=== PATIENT | female | born 1955 | race Caucasian/White ===

== ENCOUNTER 2017-02-27 14:21 | Emergency (ER) | payer OTHER ==
[~2017-02-27] VITALS: Ht 144.8 cm; Wt 63.0 kg
[~2017-02-27 14:21] MED LIST: ASPI325EC PO; ATOR10 PO; Bactrim Ds Tab1 EACH PO; CEPH500 PO; IBUP800 PO; LETR2.5 PO; LISI20 PO; Macrodantin50 MG; Norco 5-325 Ta1 EACH PO; Percocet 5-3251 EACH PO; TOPI100 PO; TOPIRAMATE ER50 MG; TRIM100 PO
== END 2017-02-27 15:41 | disposition home or self-care (01) ==
LOC: ER 14:21
DX: S80.11XA Contusion of right lower leg, initial encounter (principal); Z96.651 Presence of right artificial knee joint; I10 Essential (primary) hypertension; Z48.89 Encounter for other specified surgical aftercare; X58.XXXA Exposure to other specified factors, initial encounter; Z79.899 Other long term (current) drug therapy; Z79.82 Long term (current) use of aspirin
CPT/HCPCS: 99282

== ENCOUNTER 2017-08-21 10:23 | Emergency (ER) | payer OTHER ==
[~2017-08-21] VITALS: Ht 144.8 cm; Wt 53.5 kg
[2017-08-21] MEDS ORDERED: TRAM50 PO (11:38)
== END 2017-08-21 11:49 | disposition home or self-care (01) ==
LOC: ER 10:23
DX: M24.9 Joint derangement, unspecified (principal); I10 Essential (primary) hypertension; Z79.899 Other long term (current) drug therapy; W01.0XXA Fall on same level from slipping, tripping and stumbling without subsequent striking against object, initial encounter
CPT/HCPCS: 73030; 99283

== ENCOUNTER 2017-09-13 09:13 | Day surgery (SDC) | payer OTHER ==
[~2017-09-13] VITALS: Ht 144.8 cm; Wt 51.9 kg
[~2017-09-13 09:13] MED LIST changes: +TRAM50 PO
== END 2017-09-13 12:45 | disposition home or self-care (01) ==
LOC: ORSCSDS 09:13
PROVIDERS: Orthopaedic Surgery
PROC: 0JNJ0ZZ Release Right Hand Subcutaneous Tissue and Fascia, Open Approach (ICD-10-PCS; principal; 2017-09-13 10:35)
PROC: 0LN70ZZ Release Right Hand Tendon, Open Approach (ICD-10-PCS; principal; 2017-09-13 10:35)
DX: M72.0 Palmar fascial fibromatosis [Dupuytren] (principal); I10 Essential (primary) hypertension; Z79.899 Other long term (current) drug therapy
CPT/HCPCS: 88304; J0690; J1100; J2250; J2405; J2765; J3010; J7120

== ENCOUNTER 2018-09-08 19:02 | Emergency (ER) | payer OTHER ==
[~2018-09-08] VITALS: Ht 144.8 cm; Wt 44.9 kg
== END 2018-09-08 20:05 | disposition home or self-care (01) ==
LOC: ER 19:02
DX: S61.213A Laceration without foreign body of left middle finger without damage to nail, initial encounter (principal); I10 Essential (primary) hypertension; F17.200 Nicotine dependence, unspecified, uncomplicated; Z23 Encounter for immunization; W26.0XXA Contact with knife, initial encounter
CPT/HCPCS: 12001; 90471; 90714; 99282-25

== ENCOUNTER → 2019-03-09 | Outpatient (CLI) | payer OTHER ==
[2019-03-13 06:57] LABS: Stool Occult Bld Immuno 1 Negative (NEGATIVE)
== END | disposition home or self-care (01) ==
LOC: LAB SHORT 10:00 → LAB 10:00
PROVIDERS: Family Medicine
DX: Z12.11 Encounter for screening for malignant neoplasm of colon (principal)
CPT/HCPCS: G0328

== ENCOUNTER → 2020-02-14 | Outpatient (CLI) | payer MEDICARE ==
[2020-02-14 08:47] LABS: Source, Urine Clean Catch
[2020-02-14 14:44] LABS: Appearance, Urine Clear (Clear); Bilirubin, Urine Neg (Neg); Blood, Urine Neg (Neg); Color, Urine Yellow (P-Yellow); Glucose Qualitative, Urine Neg (Neg); Ketones, Urine Neg (Neg); Leukocyte Esterase, Urine 2+ (Neg); Nitrite, Urine Neg (Neg); Protein, Urine Neg (Neg); Specific Gravity, Urine 1.015 (1.003-1.022); Urobilinogen, Urine NORM (Normal)
[2020-02-14 14:51] LABS: Bacteria Few /hpf; Red Blood Cells, Urine 0-2 /hpf (0-2); Squamous Epithelial Cells Mod /hpf (Few)
== END | disposition home or self-care (01) ==
LOC: LAB 08:45
PROVIDERS: Family Medicine
DX: R10.9 Unspecified abdominal pain (principal)
CPT/HCPCS: 81001; 87086

== ENCOUNTER 2020-05-31 12:28 | Emergency (ER) | payer MEDICARE ==
[~2020-05-31] VITALS: Ht 144.8 cm; Wt 49.0 kg
[2020-05-31 13:01] LABS: BASOPHILS ABSOLUTE AUTO 0.03 K/mm3 (0.00-0.23); BASOPHILS PERCENT AUTO 1 % (0-2); EOSINOPHILS ABSOLUTE AUTO 0.07 K/mm3 (0.00-0.68); EOSINOPHILS PERCENT AUTO 1 % (0-6); Hematocrit 32.8 % (33.0-51.0); Hemoglobin 10.9 g/dL (11.5-16.0); IMMATURE GRAN ABSOLUTE AUTO 0.01 K/mm3 (0.00-0.10); IMMATURE GRAN PERCENT AUTO 0 % (0-1); LYMPHOCYTES ABSOLUTE AUTO 0.82 K/mm3 (0.84-5.20); LYMPHOCYTES PERCENT AUTO 16 % (21-46); MONOCYTES ABSOLUTE AUTO 0.81 K/mm3 (0.16-1.47); MONOCYTES PERCENT AUTO 15 % (4-13); Mean Corpuscular HGB 30.7 pg (26.0-34.0); Mean Corpuscular HGB Conc 33.2 g/dL (31.5-36.5); Mean Corpuscular Volume 92 fL (80-100); Mean Platelet Volume 8.8 fL (9.1-12.4); NEUTROPHILS ABSOLUTE AUTO 3.56 K/mm3 (1.96-9.15); NEUTROPHILS PERCENT AUTO 67 % (41-73); Platelet Count 317 K/mm3 (150-400); RDW Coefficient Variation 12.2 % (11.7-14.2); Red Blood Cell Count 3.55 M/mm3 (3.80-5.20)
[2020-05-31 13:26] LABS: Albumin, Blood 3.3 g/dL (3.4-5.0); Albumin/Globulin Ratio 1.1 (0.8-1.8); Bilirubin, Total 0.3 mg/dL (0.1-1.0); Bun/Creatinine Ratio 19.4 (12.0-20.0); Calcium, Blood 8.6 mg/dL (8.5-10.1); Creatinine, Blood 1.08 mg/dL (0.40-1.00); Total Protein, Blood 6.3 g/dL (6.4-8.2)
== END 2020-05-31 16:50 | disposition home or self-care (01) ==
LOC: ER 12:28
PROVIDERS: Physician Assistant
DX: R29.810 Facial weakness (principal); I10 Essential (primary) hypertension; Z88.8 Allergy status to other drugs, medicaments and biological substances; Z79.899 Other long term (current) drug therapy
CPT/HCPCS: 36415; 70450; 80053; 85025; 93005; 93010; 99284-25

== ENCOUNTER → 2020-09-21 | Outpatient (CLI) | payer MEDICARE | END | disposition home or self-care (01) | LOC: LAB SHORT 20:18 | DX: M54.5 Low back pain (principal) | CPT/HCPCS: 87086 ==

== ENCOUNTER → 2021-10-27 | Outpatient (CLI) | payer OTHER | END | disposition home or self-care (01) | LOC: LAB 15:18 → LAB SHORT 15:18 | DX: N39.0 Urinary tract infection, site not specified (principal) | CPT/HCPCS: 87077; 87086; 87186 ==

== ENCOUNTER → 2022-01-29 | Outpatient (CLI) | payer OTHER ==
[2022-01-29 13:12] LABS: Source, Urine Clean Catch
[2022-01-29 16:38] LABS: Appearance, Urine Turbid (Clear); Bilirubin, Urine Neg (Neg); Blood, Urine 2+ (Neg); Color, Urine Yellow (P-Yellow); Glucose Qualitative, Urine Neg (Neg); Ketones, Urine Neg (Neg); Leukocyte Esterase, Urine 3+ (Neg); Nitrite, Urine Pos (Neg); Protein, Urine 2+ (Neg); Urobilinogen, Urine NORM (Normal)
[2022-01-29 17:22] LABS: Bacteria Many /hpf; Granular Casts 0-2 /lpf (0); Hyaline Casts 0-2 /lpf (0-2); Red Blood Cells, Urine TNTC /hpf (0-2); Squamous Epithelial Cells Few /hpf (Few); White Blood Cells, Urine TNTC /hpf (0-5)
== END | disposition home or self-care (01) ==
LOC: LAB 11:30 → LAB SHORT 11:30
PROVIDERS: Family Medicine
DX: R30.0 Dysuria (principal)
CPT/HCPCS: 81001; 87077; 87086; 87186

== ENCOUNTER 2022-06-02 09:27 | Emergency (ER) | payer OTHER ==
[~2022-06-02] VITALS: Ht 144.8 cm; Wt 45.4 kg
[2022-06-02] MEDS ORDERED: TRAZ150T57 PO (09:43)
[2022-06-02] MEDS ORDERED: TIZANIDINE HCL213 PO (09:43)
[2022-06-02] MEDS ORDERED: ATOR10 PO (09:44)
[2022-06-02] MEDS ORDERED: Lisinopril2.5 MG (09:44)
[2022-06-02] MEDS ORDERED: TRAM50 PO (12:06)
[2022-06-02] MEDS ORDERED: MOTRIN IB200 MG PO (12:08)
== END 2022-06-02 12:34 | disposition home or self-care (01) ==
LOC: ER 09:27
DX: S82.841A Displaced bimalleolar fracture of right lower leg, initial encounter for closed fracture (principal); S92.251A Displaced fracture of navicular [scaphoid] of right foot, initial encounter for closed fracture; I10 Essential (primary) hypertension; V89.2XXA Person injured in unspecified motor-vehicle accident, traffic, initial encounter; Z79.899 Other long term (current) drug therapy
CPT/HCPCS: 70450; 72125; 73560-RT; 73600; 73610; 73630; 76000

== ENCOUNTER 2022-06-04 09:51 | Day surgery (SDC) | payer OTHER ==
[~2022-06-04] VITALS: Ht 144.8 cm; Wt 46.1 kg
[~2022-06-04 09:51] MED LIST changes: +Lisinopril2.5 MG; +MOTRIN IB200 MG PO; +TIZANIDINE HCL213 PO; +TRAZ150T57 PO
--- NOTE | 2022-06-04 11:20 | NUR ---
History, Chart, Medications and Allergies reviewed before start of procedure. Patient confirms NPO status and agrees with scheduled surgery. Pre-Op teaching done. Pt verbalizes understanding. Patient States Post-Procedure ride home has been arranged. Patient reports completing Chlorhexadine shower X2 prior to admission to hospital. Lungs clear T/O to Auscultation.
[2022-06-04] MEDS ORDERED: TRAZ100 PO (11:57)
--- NOTE | 2022-06-04 12:30 | NUR ---
RX GIVEN TO DAUGHTER IN LAW TO GET FILLED WHILE PT IS IN SURGERY.
--- NOTE | 2022-06-04 16:14 | NUR ---
Discharge instructions reviewed with patient. Patient verbalizes understanding. Copy given to patient to take home. Patient States Post-Procedure ride home has been arranged. Discharged via wheelchair to private car for ride home. PT HAS CAP REFILL OF <2, NO DISCOLORATION OR SWELLING OF EXTREMITY. ALL BELONGINGS RETURNED TO PATIENT.
== END 2022-06-04 22:48 | disposition home or self-care (01) ==
LOC: ORSCMMR 09:51 → ORD 11:30 → ORSCMMR 22:48
DX: S82.841A Displaced bimalleolar fracture of right lower leg, initial encounter for closed fracture (principal); I10 Essential (primary) hypertension; F17.210 Nicotine dependence, cigarettes, uncomplicated; Z79.899 Other long term (current) drug therapy; Z85.3 Personal history of malignant neoplasm of breast
CPT/HCPCS: A9270; C1713; C1769; J0690; J1100; J1885; J2270; J2405; J2704; J2795; J3010; J7120

== ENCOUNTER 2022-06-22 12:07 | Emergency (ER) | payer OTHER ==
[~2022-06-22] VITALS: Ht 144.8 cm; Wt 45.4 kg
[~2022-06-22 12:07] MED LIST changes: +TRAZ100 PO
[2022-06-22 13:31] LABS: BASOPHILS ABSOLUTE AUTO 0.04 K/mm3 (0.00-0.23); BASOPHILS PERCENT AUTO 1 % (0-2); EOSINOPHILS ABSOLUTE AUTO 0.04 K/mm3 (0.00-0.68); EOSINOPHILS PERCENT AUTO 1 % (0-6); Hematocrit 30.8 % (33.0-51.0); Hemoglobin 10.2 g/dL (11.5-16.0); IMMATURE GRAN ABSOLUTE AUTO 0.02 K/mm3 (0.00-0.10); IMMATURE GRAN PERCENT AUTO 0 % (0-1); LYMPHOCYTES ABSOLUTE AUTO 0.88 K/mm3 (0.84-5.20); LYMPHOCYTES PERCENT AUTO 15 % (21-46); MONOCYTES ABSOLUTE AUTO 0.55 K/mm3 (0.16-1.47); MONOCYTES PERCENT AUTO 9 % (4-13); Mean Corpuscular HGB 31.3 pg (26.0-34.0); Mean Corpuscular HGB Conc 33.1 g/dL (31.5-36.5); Mean Corpuscular Volume 95 fL (80-100); Mean Platelet Volume 8.6 fL (9.1-12.4); NEUTROPHILS ABSOLUTE AUTO 4.43 K/mm3 (1.96-9.15); NEUTROPHILS PERCENT AUTO 74 % (41-73); Platelet Count 436 K/mm3 (150-400); RDW Coefficient Variation 13.2 % (11.7-14.2); RDW Standard Deviation 46.1 fL (35.1-46.3); Red Blood Cell Count 3.26 M/mm3 (3.80-5.20); White Blood Cell Count 5.96 K/mm3 (4.00-11.30)
[2022-06-22] MEDS ORDERED: TRIM100 PO (13:37)
[2022-06-22 13:51] LABS: Source, Urine Clean Catch
[2022-06-22 13:57] LABS: Albumin, Blood 3.3 g/dL (3.4-5.0); Albumin/Globulin Ratio 1.1 (0.8-1.8); Bilirubin, Total 0.2 mg/dL (0.1-1.0); Calcium, Blood 8.5 mg/dL (8.5-10.1); Creatinine, Blood 1.32 mg/dL (0.40-1.00); Globulin, Blood 3.1 g/dL (2.2-4.0); Potassium, Blood 4.8 mmol/L (3.5-5.5); Total Protein, Blood 6.4 g/dL (6.4-8.2)
[2022-06-22 14:00] LABS: Bilirubin, Urine Neg (Neg); Blood, Urine Neg (Neg); Glucose Qualitative, Urine Neg (Neg); Ketones, Urine Neg (Neg); Leukocyte Esterase, Urine Neg (Neg); Nitrite, Urine Neg (Neg); Protein, Urine 1+ (Neg); Specific Gravity, Urine 1.015 (1.003-1.022); Urobilinogen, Urine NORM (Normal)
[2022-06-22 14:01] LABS: Appearance, Urine Clear (Clear); Color, Urine Yellow (P-Yellow)
[2022-06-22 14:53] VITALS: BP 93/57
== END 2022-06-22 15:11 | disposition home or self-care (01) ==
LOC: ER 12:07
PROVIDERS: Physician Assistant
DX: R07.89 Other chest pain (principal); R10.9 Unspecified abdominal pain; E27.8 Other specified disorders of adrenal gland; I10 Essential (primary) hypertension; Z79.899 Other long term (current) drug therapy
CPT/HCPCS: 36415; 71046; 74177; 80053; 85025; Q9967

== ENCOUNTER → 2022-06-30 | Outpatient (CLI) | payer OTHER ==
[2022-06-30 10:17] LABS: Source, Urine Clean Catch
[2022-06-30 12:15] LABS: Appearance, Urine Cloudy (Clear); Bilirubin, Urine Neg (Neg); Blood, Urine 2+ (Neg); Color, Urine Yellow (P-Yellow); Glucose Qualitative, Urine Neg (Neg); Ketones, Urine Neg (Neg); Leukocyte Esterase, Urine 3+ (Neg); Nitrite, Urine Pos (Neg); Protein, Urine 3+ (Neg); Specific Gravity, Urine 1.015 (1.003-1.022); Urobilinogen, Urine NORM (Normal); pH, Urine 6.5 (5.0-8.0)
[2022-06-30 13:05] LABS: Bacteria Many /hpf; Mucus Heavy (0-Heavy); Squamous Epithelial Cells Mod /hpf (Few); White Blood Cells, Urine 25-50 /hpf (0-5)
== END | disposition home or self-care (01) ==
LOC: LAB 10:10 → LAB SHORT 10:10
PROVIDERS: Family Medicine
DX: R30.0 Dysuria (principal)
CPT/HCPCS: 81001; 87077; 87086; 87186

== ENCOUNTER → 2022-11-26 | Outpatient (CLI) | payer OTHER ==
[2022-11-26 16:13] LABS: Creatinine Urine 56.4 mg/dL (27.00-270.00)
[2022-11-30 02:09] LABS: METANEPHRINE, UR 110 ug/L (Undefined)
== END ==
LOC: LAB SHORT 13:08 → LAB 13:08
PROVIDERS: Internal Medicine
DX: E27.8 Other specified disorders of adrenal gland (principal)
CPT/HCPCS: 81050; 82570

== ENCOUNTER → 2024-02-04 | Outpatient (CLI) | payer OTHER | LOC: LAB 14:34 → LAB SHORT 14:34 | DX: J02.9 Acute pharyngitis, unspecified (principal) | CPT/HCPCS: 87081 ==

== ENCOUNTER → 2024-03-30 | Outpatient (CLI) | payer OTHER | LOC: LAB 15:07 → LAB SHORT 15:07 | DX: N39.0 Urinary tract infection, site not specified (principal); R31.9 Hematuria, unspecified | CPT/HCPCS: 87077; 87086; 87186 ==

== ENCOUNTER 2024-11-26 13:47 | Inpatient (IN) | payer OTHER ==
[~2024-11-26] VITALS: Ht 144.8 cm; Wt 49.2 kg
[2024-11-26] VITALS (15 sets, daily range): BP systolic 124–160; BP diastolic 58–81
[2024-11-26] MEDS ORDERED: HYDROmorphone HCl/Pf 1MG SYR IV ONE (14:10)
[2024-11-26] MEDS ORDERED: NS 1,000 ML IV SCH ×2 (14:10→16:40)
[2024-11-26] MEDS ORDERED: CeFAZolin Sodium 2,000 MG in NS 100 ML IV ONE (14:35)
[2024-11-26 14:58] LABS: BASOPHILS ABSOLUTE AUTO 0.02 K/mm3 (0.00-0.23); BASOPHILS PERCENT AUTO 0 % (0-2); EOSINOPHILS ABSOLUTE AUTO 0.07 K/mm3 (0.00-0.68); EOSINOPHILS PERCENT AUTO 1 % (0-6); Hematocrit 34.3 % (33.0-51.0); Hemoglobin 11.5 g/dL (11.5-16.0); IMMATURE GRAN ABSOLUTE AUTO 0.02 K/mm3 (0.00-0.10); IMMATURE GRAN PERCENT AUTO 0 % (0-1); LYMPHOCYTES ABSOLUTE AUTO 0.70 K/mm3 (0.84-5.20); LYMPHOCYTES PERCENT AUTO 8 % (21-46); MONOCYTES ABSOLUTE AUTO 0.54 K/mm3 (0.16-1.47); MONOCYTES PERCENT AUTO 7 % (4-13); Mean Corpuscular HGB Conc 33.5 g/dL (31.5-36.5); Mean Corpuscular Volume 93 fL (80-100); NEUTROPHILS ABSOLUTE AUTO 7.01 K/mm3 (1.96-9.15); NEUTROPHILS PERCENT AUTO 84 % (41-73); NRBC ABSOLUTE 0.00 K/mm3 (0.00-0.02); NRBC Auto 0.0 /100 WBC (0.0-0.2); Platelet Count 283 K/mm3 (150-400); RDW Coefficient Variation 13.9 % (11.7-14.2); RDW Standard Deviation 47.6 fL (35.1-46.3)
[2024-11-26 15:33] LABS: Alanine Aminotransfer (ALT/SGP 17.0 U/L (12-78); Albumin, Blood 3.5 g/dL (3.4-5.0); Albumin/Globulin Ratio 1.5 (0.8-1.8); Anion Gap 6.0 mmol/L (3-11); Aspartate Aminotrans (AST/SGOT 21.0 U/L (12-37); Bilirubin, Total 0.4 mg/dL (0.1-1.0); Blood Urea Nitrogen 17.0 mg/dL (8-24); CO2, Blood 28.0 mmol/L (21-32); Calcium, Blood 8.6 mg/dL (8.5-10.1); Chloride, Blood 110.0 mmol/L (98-108); Creatinine, Blood 1.01 mg/dL (0.40-1.00); Globulin, Blood 2.4 g/dL (2.2-4.0); Glucose, Blood 131.0 mg/dL (70-99); Potassium, Blood 3.6 mmol/L (3.5-5.5); Sodium, Blood 140.0 mmol/L (136-145); Total Protein, Blood 5.9 g/dL (6.4-8.2)
[2024-11-26] MEDS ORDERED: CeFAZolin Sodium 2,000 MG in NS 100 ML IV SCH (16:10)
[2024-11-26] MEDS ORDERED: Rocuronium Bromide 10 MG/ML 5ML Injection IV ONE (16:17)
--- NOTE | 2024-11-26 16:27 | NUR ---
PT TO [facility] ON ER [facility], PT A&OX4, BREATHING RA. . HOSPITALIST AND SURGICAL TEAM AT BEDSIDE IN [facility]. PT EMERGENTLY BROUGHT TO OR FOR SURGERY. PER ANESTHESIA NO OTHER INTERVENTIONS TO BE DONE IN [facility] INCLUDING VS TO EXPEDITE PT TO OR FOR SURGERY.
[2024-11-26] MEDS ORDERED: Ondansetron HCl 2 MG / ML 2ML Vial IV PRN ×2 (16:35→17:10)
[2024-11-26] MEDS ORDERED: Bupivacaine 0.25% Epi 1:200000 30 ML Vial ONE (16:40)
[2024-11-26] MEDS ORDERED: FentaNYL Citrate 50 MCG/ML 2 ML Injection IV PRN ×3 (16:40→17:10)
[2024-11-26] MEDS ORDERED: FLU VACC TS2025(65UP)/MF59C/PF 45 MCG/0.5 ML SYRINGE IM SCH (16:45)
[2024-11-26] MEDS ORDERED: HydrALAZINE HCl 20 MG / ML 1ML Vial IV PRN (16:45)
[2024-11-26] MEDS ORDERED: Dexamethasone Sod Phos 10 MG/ML 1ML VIAL ONE (17:00)
[2024-11-26] MEDS ORDERED: Ondansetron HCl 2 MG / ML 2ML Vial ONE (17:00)
[2024-11-26] MEDS ORDERED: Albuterol 2.5 MG/3 ML VIAL INH PRN (17:10)
[2024-11-26] MEDS ORDERED: Prochlorperazine Edisylate 10 mg Vial IV PRN (17:10)
[2024-11-26] MEDS ORDERED: HYDROmorphone HCl/Pf 1MG SYR IV PRN ×2 (17:10)
[2024-11-26] MEDS ORDERED: FentaNYL Citrate 50 MCG/ML 2 ML Injection ONE ×2 (17:45→18:38)
[2024-11-26] MEDS ORDERED: Sugammadex Sodium 200 MG/2ML SDV (100 MG/ML) ONE (17:48)
[2024-11-26] MEDS ORDERED: EpiNEPhrine 1 MG/1 ML 1ML Vial ONE (17:58)
[2024-11-26] MEDS ORDERED: OxyCODONE 5 mg/Acetamin 325 mg TABLET PO PRN (21:35)
[2024-11-27 00:12] VITALS: BP 136/68
[2024-11-27 03:47] VITALS: BP 118/60
[2024-11-27] MEDS ORDERED: Cefazolin 2000MG/Dextrose,ISO 50 ML IV SCH (04:35)
[2024-11-27] MEDS ORDERED: CeFAZolin Sodium 2,000 MG in NS 100 ML IV SCH (05:00)
[2024-11-27 05:08] LABS: Hematocrit 29.0 % (33.0-51.0); Hemoglobin 9.4 g/dL (11.5-16.0); Mean Corpuscular HGB Conc 32.4 g/dL (31.5-36.5); Mean Corpuscular Volume 95 fL (80-100); NRBC ABSOLUTE 0.00 K/mm3 (0.00-0.02); NRBC Auto 0.0 /100 WBC (0.0-0.2); Platelet Count 230 K/mm3 (150-400); RDW Coefficient Variation 13.9 % (11.7-14.2); RDW Standard Deviation 48.7 fL (35.1-46.3)
[2024-11-27 05:31] LABS: Anion Gap 7.0 mmol/L (3-11); Blood Urea Nitrogen 14.0 mg/dL (8-24); CO2, Blood 25.0 mmol/L (21-32); Calcium, Blood 7.2 mg/dL (8.5-10.1); Chloride, Blood 111.0 mmol/L (98-108); Creatinine, Blood 0.8 mg/dL (0.40-1.00); Glucose, Blood 164.0 mg/dL (70-99); Potassium, Blood 3.9 mmol/L (3.5-5.5); Sodium, Blood 139.0 mmol/L (136-145)
--- NOTE | 2024-11-27 06:08 | NUR ---
SHIFT SUMMARY POD 1 R ANKLE ORIF. SPLINT AND MERT WRAP IN PLACE. PT NONWEIGHT BEARING RLE. PT A&O X4. PAIN MANAGED WELL PER EMAR. PT TOLERATING DIET. PT DENIES N&V. URINATING UTILIZING BEDSIDE COMMODE W/SBA. PT PLAN OF CARE ONGOING. CALL LIGHT WITHIN REACH.
[2024-11-27 07:47] VITALS: BP 119/82
[2024-11-27] MEDS ORDERED: Enoxaparin 40 MG/0.4 ML SYR SC SCH (09:00)
[2024-11-27] MEDS ORDERED: TRAZ150T57 PO (10:49)
[2024-11-27 11:23] VITALS: BP 127/68
[2024-11-27 14:16] VITALS: BP 143/70
--- NOTE | 2024-11-27 17:19 | NUR ---
SUMMARY ASSUMED CARE OF PT @0700. VSS. AXO4. IRRITABLE AT TIMES - ESPECIALLY REGARDING THE IDEA OF STAYING OVERNIGHT OR DISCHARGING TO SNF - PT AT TIMES YELLS ANGRILY "IM NOT GOING TO A FUCKING REHAB , I WANT TO GO HOME". DAUGHTER HAS BEEN ON PHONE WITH PT TO CALM HER DOWN AND MAKE HER MORE AGREABLE - PF NOTE, PT IS COOPERATIVE WITH STAFF. REMAINS NXB TO R ANKLE - PT MAINTAINING THIS WELL WHEN USING WALKER. PT/OT STATE BEST PLACEMENT WOULD BE REHAB BUT HOME WITH HH IF PT CONTINUES TO DENY REHAB. R ANKLE REMAINS IN SPLINT - TOES PINK, WIGGLING FREELY, CAP REFILL <3SEC. PT TO STAY OVER NIGHT AND THEN POSSIBLY DC TOMORROW WITH HH PER DR FELICIANO.
[2024-11-27 20:07] VITALS: BP 156/67
[2024-11-28 05:19] LABS: BASOPHILS ABSOLUTE AUTO 0.02 K/mm3 (0.00-0.23); BASOPHILS PERCENT AUTO 0 % (0-2); EOSINOPHILS ABSOLUTE AUTO 0.07 K/mm3 (0.00-0.68); EOSINOPHILS PERCENT AUTO 1 % (0-6); Hematocrit 28.6 % (33.0-51.0); Hemoglobin 9.5 g/dL (11.5-16.0); IMMATURE GRAN ABSOLUTE AUTO 0.03 K/mm3 (0.00-0.10); IMMATURE GRAN PERCENT AUTO 0 % (0-1); LYMPHOCYTES ABSOLUTE AUTO 0.85 K/mm3 (0.84-5.20); LYMPHOCYTES PERCENT AUTO 11 % (21-46); MONOCYTES ABSOLUTE AUTO 0.91 K/mm3 (0.16-1.47); MONOCYTES PERCENT AUTO 12 % (4-13); Mean Corpuscular HGB Conc 33.2 g/dL (31.5-36.5); Mean Corpuscular Volume 94 fL (80-100); NEUTROPHILS ABSOLUTE AUTO 5.57 K/mm3 (1.96-9.15); NEUTROPHILS PERCENT AUTO 75 % (41-73); NRBC ABSOLUTE 0.00 K/mm3 (0.00-0.02); NRBC Auto 0.0 /100 WBC (0.0-0.2); Platelet Count 237 K/mm3 (150-400); RDW Coefficient Variation 13.9 % (11.7-14.2); RDW Standard Deviation 47.6 fL (35.1-46.3)
[2024-11-28 05:24] VITALS: BP 136/62
--- NOTE | 2024-11-28 05:38 | NUR ---
SHIFT SUMMARY POD 2 R ANKLE ORIF. SPLINT AND MERT WRAP IN PLACE. PT A&O X4. VSS. PAIN MANAGED WELL PER EMAR. PT NWB RLE. PT TOLERATING DIET WELL. PT DENIES N&V. PT UTILIZING BEDSIDE COMMODE W/SBA. PT RESTED THROUGHOUT THE NIGHT. CALL LIGHT WITHIN REACH.
[2024-11-28 05:44] LABS: Anion Gap 7.0 mmol/L (3-11); Blood Urea Nitrogen 11.0 mg/dL (8-24); CO2, Blood 26.0 mmol/L (21-32); Calcium, Blood 7.6 mg/dL (8.5-10.1); Chloride, Blood 111.0 mmol/L (98-108); Creatinine, Blood 0.79 mg/dL (0.40-1.00); Glucose, Blood 98.0 mg/dL (70-99); Potassium, Blood 3.6 mmol/L (3.5-5.5); Sodium, Blood 140.0 mmol/L (136-145)
[2024-11-28 07:11] VITALS: BP 146/75
[2024-11-28] MEDS ORDERED: ASPI81CH PO (14:01)
[2024-11-28] MEDS ORDERED: ACET325 PO (14:01)
--- NOTE | 2024-11-28 14:58 | NUR ---
DISCHARGE SUMMARY POD 2 R ANKLE ORIF. A&O x4, VSS, HRR, LUNGS CLEAR. R ANKLE w/ SPLINT & MERT WRAP IN PLACE, C/D/I. NWB TO R LEG. TOLERATING REGULAR DIET WELL. AMBULATES WELL TO BEDSIDE COMMODE w/WALKER &ASSISTANCE. PT RECOMMENDED SNF PLACEMENT, PT DECLINING. HOME w/HH RECOMMENDED, CASE MGMT AT BEDSIDE THIS AM. UNABLE TO QUALIFY DUE TO INSURANCE. PT AWARE, CONTINUING TO DECLINE SNF, DC HOME ORDERED. DISCHARGE INSTRUCTIONS REVIEWED & GIVEN, ESCORTED OUT VIA WC.
== END 2024-11-28 15:10 | disposition home or self-care (01) | DRG 493 ==
LOC: ER 13:47 → SURS 16:34
PROVIDERS: Family Medicine; Orthopaedic Surgery; Student in an Organized Health Care Education/Training Program; ADMIT Internal Medicine
PROC: 0QSG04Z Reposition Right Tibia with Internal Fixation Device, Open Approach (ICD-10-PCS; 2024-11-26)
PROC: 0SPF04Z Removal of Internal Fixation Device from Right Ankle Joint, Open Approach (ICD-10-PCS; 2024-11-26)
PROC: 0QSJ04Z Reposition Right Fibula with Internal Fixation Device, Open Approach (ICD-10-PCS; principal; 2024-11-26 15:15)
DX: S82.841A Displaced bimalleolar fracture of right lower leg, initial encounter for closed fracture (principal); M97.21XA Periprosthetic fracture around internal prosthetic right ankle joint, initial encounter; N17.9 Acute kidney failure, unspecified; I10 Essential (primary) hypertension; E78.5 Hyperlipidemia, unspecified; Z66 Do not resuscitate; G47.00 Insomnia, unspecified; Z60.2 Problems related to living alone; Z90.710 Acquired absence of both cervix and uterus; Z98.890 Other specified postprocedural states; Z87.440 Personal history of urinary (tract) infections; Z90.89 Acquired absence of other organs; Z79.899 Other long term (current) drug therapy; V43.52XA Car driver injured in collision with other type car in traffic accident, initial encounter
CPT/HCPCS: 36415; 71045; 73610; 80048; 80053; 85025; 85027; 90471; 90715; 93005; 93010; 96365; 96375; 97116; 97161; 97166; 99285-25; A9270; C1713; J0169; J0690; J1100; J1171; J1650; J2405; J2704; J3010; J7030; J7120